=== PATIENT | female | born 1990 | race Caucasian/White ===

== ENCOUNTER 2022-02-20 12:25 | Emergency (ER) | payer BC, SELFPAY ==
[2022-02-20 12:27] VITALS: BP 152/83; PULSE 92; RESP 19; TEMP 36.7; O2SAT 99; BMI 24.5
--- NOTE | 2022-02-20 13:12 | CTR_ITS ---
PROCEDURE INFORMATION: Exam: CT Head Without Contrast Exam date and time: 02/20/2022 1:53 PM Age: 31 years old Clinical indication: Injury or trauma; Fall; Blunt trauma (contusions or hematomas); Without loss of consciousness TECHNIQUE: Imaging protocol: Computed tomography of the head without contrast. Radiation optimization: All CT scans at this facility use at least one of these dose optimization techniques: automated exposure control; mA and/or kV adjustment per patient size (includes targeted exams where dose is matched to clinical indication); or iterative reconstruction. COMPARISON: No relevant prior studies available. RADIATION DOSE METRICS: Total DLP (mGy-cm): 1153.6 FINDINGS: Brain: No hemorrhage. No edema. A few scattered punctate areas of hypoattenuation in both basal ganglia, which may reflect old lacunar infarcts. No mass effect. Cerebral ventricles: No ventriculomegaly. Paranasal sinuses: Visualized sinuses are unremarkable. No fluid levels. Mastoid air cells: Visualized mastoid air cells are well aerated. Bones/joints: Unremarkable. No acute fracture. Soft tissues: Unremarkable. CT/CT head wo con* [id number] IMPRESSION: 1. No acute intracranial abnormality. 2. There are a few scattered punctate areas of hypoattenuation in both basal ganglia which may reflect old lacunar infarcts.
--- NOTE | 2022-02-20 13:12 | CTR_ITS ---
PROCEDURE INFORMATION: Exam: CT Cervical Spine Without Contrast Exam date and time: 02/20/2022 1:53 PM Age: 31 years old Clinical indication: Injury or trauma; Fall; Blunt trauma TECHNIQUE: Imaging protocol: Computed tomography of the cervical spine without contrast. Radiation optimization: All CT scans at this facility use at least one of these dose optimization techniques: automated exposure control; mA and/or kV adjustment per patient size (includes targeted exams where dose is matched to clinical indication); or iterative reconstruction. COMPARISON: No relevant prior studies available. RADIATION DOSE METRICS: Total DLP (mGy-cm): 192.1 FINDINGS: Bones/joints: No acute fracture. Normal alignment. No significant disc protrusion. No severe spinal canal stenosis. Lungs: Lung apices are normal. Soft tissues: Unremarkable. CT/CT cervical spin wo con* [id number] IMPRESSION: No acute findings.
--- NOTE | 2022-02-20 13:15 | W.ED.FALL ---
HPI - Fall General: Chief Complaint: Fall Stated Complaint: head/neck pain Time Seen by Provider: 02/20/22 13:07 Source: patient Mode of arrival: ambulatory Limitations: no limitations History of Present Illness: 31-year-old female has a history of chronic neck pain along with headaches states that she was mopping her floor yesterday and slipped and fell and hit her head on the counter. States she hit her posterior head she been having a posterior headache along with neck pain since then she rates her pain a 6 out of 10 denies any loss conscious denies any worsening improving factors. Associated symptoms-after fall: Reports headache(s) and neck pain; Denies abdominal pain or chest pain Review of Systems Const: Denies: fever(s), chills, body aches or change in appetite Eyes: Denies: blurry vision or eye discomfort ENMT: Denies: throat pain or dental pain Card: Denies: chest pain Resp: Denies: dyspnea GI: Denies: abdominal pain, nausea, vomiting or diarrhea : Denies: dysuria Musc: Reports: neck pain Skin/Breast: Denies: rash Neuro: Reports: headache(s) Psych: Denies: depression Simeon/Lymph: Denies: easy bruising All/Imm: Denies: urticaria PFSH ED PFSH: Medical History No pertinent past medical history Social History (Updated 02/20/22 @ 13:15 by Kilo Braun MD) Substance/Drug Use: never Physical Exam Const: COMMON NORMALS: no acute distress, patient oriented x3 and healthy appearing HENMT: COMMON NORMALS: normocephalic HEAD & SCALP: normocephalic OTHER: Posterior scalp tenderness Eye: COMMON NORMALS: Equal, round and reactive pupils present and EOMs intact bilaterally PUPIL: Yes Equal, round and reactive pupils present Neck/C-Spine: COMMON NORMALS: full ROM and supple OTHER: Tenderness along C-spine Chest: COMMONS NORMALS: normal inspection of the chest and normal palpation of entire chest wall Resp: COMMON NORMALS: normal respiratory effort, No retractions, No use of accessory muscles and clear to auscultation bilaterally AUSCULTATION: clear to auscultation bilaterally Cardio: COMMON NORMALS: regular rate, regular rhythm and No murmurs present (Cardio) RATE: regular rate RHYTHM: regular rhythm GI: COMMON NORMALS: Normal to inspection, nondistended, normoactive bowel sounds present, Soft to palpation, non-tender and no masses PALPATION: Yes Soft to palpation Extremity: COMMON NORMALS: normal to inspection and full ROM Neuro: COMMON NORMALS: patient oriented x3, moves all extremities and no focal motor deficits Psych: COMMON NORMALS: mental status grossly normal, Normal thought process present and cooperative THOUGHT PROCESS: Normal thought process present Skin: COMMON NORMALS: no rashes or lesions noted and no wounds GENERAL SKIN EXAM: no rashes or lesions noted Course Vital Signs: Vital signs: Vital Signs Temperature 98.1 F 02/20/22 12:27 Pulse Rate 92 02/20/22 12:27 Respiratory Rate 19 H 02/20/22 12:27 Blood Pressure 152/83 02/20/22 12:27 Pulse Oximetry 99 02/20/22 12:27 Oxygen Delivery Me thod 02/20/22 12:27 MDM - Fall Medical Decision Making Patient presents here with close head injury along with neck pain from a fall her CT scans here are normal she is well-appearing here her pains improved she stable for discharge she is to follow-up with PCP and return if worsening she understands agrees to plan. Lab Data Radiology Impressions Cervical Spine CT 02/20/22 13:12 IMPRESSION: No acute findings. Head CT 02/20/22 13:12 IMPRESSION: 1. No acute intracranial abnormality. 2. There are a few scattered punctate areas of hypoattenuation in both basal ganglia which may reflect old lacunar infarcts. Discharge Plan Discharge Patient Disposition: Home Clinical Impression: Closed head injury, Neck pain Prescriptions: New methocarbamol 750 mg tablet 750 mg PO Q6H PRN (Reason: spasms) Qty: 20 0RF Naprosyn 500 mg tablet 500 mg PO BID PRN (Reason: pain) Qty: 20 0RF Discharge Orders: Discharge ED (Routine); Ordered 02/20/22 Ordered By: Kilo Braun Referrals: Curz Merino FNP [Primary Care Provider] - 1-3 days Discharge Diet: Advance as tolerated Discharge Activity: Resume usual activity Patient Instructions: Head Injury (ED), Neck Pain (ED) Coding Level of Care Code ED Mobile Marketing Specialist for Chg Fwd Exam Comprehensive
[2022-02-20] MEDS: ondansetron 2 mg/ML SDV 2 mL 4 MG IVP (13:39)
[2022-02-20] MEDS: ketorolac 30 mg/mL INJ IVP (13:40)
[2022-02-20] MEDS: HYDROcodone-acetaminophen 5-325 mg Tablet 1 TAB PO (14:43)
== END 2022-02-20 14:54 | disposition home or self-care (01) ==
PROVIDERS: Emergency Provider Emergency Medicine; PCP Nurse Practitioner Family
DX: S09.8XXA Other specified injuries of head, initial encounter (principal); M54.2 Cervicalgia; W01.198A Fall on same level from slipping, tripping and stumbling with subsequent striking against other object, initial encounter
CPT/HCPCS: 70450; 72125; 96374; 96375; 99285; J1885; J2405

== ENCOUNTER 2022-03-13 21:58 | Emergency (ER) | payer BC, SELFPAY ==
[2022-03-13 22:05] VITALS: BP 121/86; PULSE 88; RESP 16; TEMP 36.4; O2SAT 98
--- NOTE | 2022-03-13 22:30 | W.ED.FEMALGU ---
HPI - Female Genitourinary General: Chief complaint: Urogenital-Female Stated complaint: blood in urine, low back,fever Time Seen by Provider: 03/13/22 22:29 History of Present Illness: 32-year-old female comes in today with complaints of right flank pain radiating into the groin and blood in urine. Patient also reported occasional fever. Patient reports nausea and vomiting. Patient does have gallbladder disease. Patient appears nontoxic. Patient moves all extremities well. Patient has had a tubal ligation. Associated symptoms: Reports abdominal pain and nausea Review of Systems Const: Reports: fever(s) and chills GI: Reports: abdominal pain, nausea and vomiting : Reports: flank pain and hematuria PFS ED PFSH: Medical History No pertinent past medical history Physical Exam Const: COMMON NORMALS: alert HENMT: COMMON NORMALS: normocephalic HEAD & SCALP: normocephalic Neck/C-Spine: COMMON NORMALS: full ROM Resp: COMMON NORMALS: normal respiratory effort and clear to auscultation bilaterally AUSCULTATION: clear to auscultation bilaterally Cardio: COMMON NORMALS: regular rate and regular rhythm RATE: regular rate RHYTHM: regular rhythm GI: COMMON NORMALS: Soft to palpation PALPATION: Yes Soft to palpation and Yes Tenderness to palpation present (GI) Details: RLQ and RUQ : BLADDER/KIDNEY EXAM: Yes CVA tenderness on the right Back/Pelvis: GENERAL BACK: Yes CVA tenderness Extremity: COMMON NORMALS: no pedal edema Neuro: SENSORIUM/ORIENTATION: Yes alert Skin: COMMON NORMALS: turgor normal GENERAL SKIN EXAM: turgor normal Course Vital Signs: Vital signs: Vital Signs Temperature 97.6 F 03/13/22 22:05 Pulse Rate 88 03/13/22 22:05 Respiratory Rate 18 03/13/22 23:02 Blood Pressure 121/86 03/13/22 22:05 Pulse Oximetry 98 03/13/22 22:05 Oxygen Delivery Me thod 03/13/22 22:05 MDM - Female Medical Decision Making Patient comes in today with nausea vomiting, right flank pain radiating to the groin. Hematuria. On exam she has right upper quadrant abdominal pain, CVA tenderness on percussion, soft abdomen. Bowel sounds are present. Vital signs are normal. Differential diagnosis includes but not limited to gallbladder disease, renal calculi, pyelonephritis, UTI, appendicitis. Patient was given 50 mcg of fentanyl, and 15 mg of ketorolac for her abdominal pain. Patient did have some good results for about 1 hour and then was asking for more pain medication. CT of the abdomen and pelvis came back and was negative for any abnormalities except constipation. CBC noted a mild leukocytosis at 11,000, urinalysis was unremarkable, and CMP was unremarkable. Reviewed exam with patient and recommended treatment for constipation. Patient left prior to discharge instructions given due to reported poor control of pain. Lab Data 03/13/22 23:25 03/13/22 23:25 Radiology Impressions Abdomen/Pelvis CT 03/13/22 22:55 IMPRESSION: 1. No acute findings. 2. Stool throughout the colon suggests constipation. No bowel obstruction. Laboratory Results WBC 11.9 10^3/uL (4.0-10.0) H 03/13/22: RBC 4.49 10^6/uL (4.1-5.3) 03/13/22: Hgb 14.1 g/dL (11.5-15.3) 03/13/22: Hct 44.2 % (37.0-47.0) 03/13/22: MCV 98.4 fl (81-99) 03/13/22: MCH 31.4 pg (28.0-34.0) 03/13/22: MCHC 31.9 g/dL (30.0-36.0) 03/13/22: RDW 11.3 % (12.1-15.1) L 03/13/22: Plt Count 276 10^3/cmm (130-400) 03/13/22: MPV 10.3 fL (7.4-10.4) 03/13/22: Neut % (Auto) 50.1 % 03/13/22: Lymph % (Auto) 39.3 % 03/13/22: Page % (Auto) 7.2 % 03/13/22: Eos % (Auto) 2.4 % 03/13/22: Baso % (Auto) 0.7 % 01/28/23 23:25 Neut # (Auto) 5.95 10^3/uL (1.8-7.7) 03/13/22 23:25 Lymph # (Auto) 4.7 10^3/uL (0.8-4.8) 03/13/22 23:25 Page # (Auto) 0.9 10^3/uL (0.2-0.9) 03/13/22 23:25 Eos # (Auto) 0.3 10^3/uL (0.0-0.8) 03/13/22 23:25 Baso # (Auto) 0.1 10^3/uL (0.0-0.1) 03/13/22 23:25 Nucleated RBC % (auto) 0 % 03/13/22 23: Nucleated RBCs # 0.0 /100WBC 03/13/22 23:25 Sodium 138 mmol/L (136-145) 03/13/22 23:25 Potassium 3.6 mmol/L (3.5-5.1) 03/13/22 23:25 Chloride 106 mmol/L (98-107) 03/13/22 23:25 Carbon Dioxide 19 mmol/L (22-29) L 03/13/22 23:25 Anion Gap 16.6 (5-19) 03/13/22 23:25 BUN 23 mg/dL (6-20) H 03/13/22 23:25 Creatinine 0.9 mg/dL (0.5-0.9) 03/13/22 23:25 GFR Calculation 72.1 mL/min (90-130) L 03/13/22 23:25 Glucose 96 mg/dL (65-115) 03/13/22 23:25 Calculated Osmolality 290 mOsm/kg (285-295) 03/13/22 23:25 Calcium 9.8 mg/dL (8.5-10.5) 03/13/22 23:25 Total Bilirubin 0.3 mg/dL (0.15-1.2) 03/13/22 23:25 AST 15 U/L (0-32) 03/13/22 23:25 ALT 10 U/L (0-33) 03/13/22 23:25 Alkaline Phosphatase 58 U/L (35-105) 03/13/22 23:25 Total Protein 7.6 g/dL (6.6-8.7) 03/13/22 23:25 Albumin 4.4 g/dL (3.5-5.2) 03/13/22 23:25 Globulin 3.2 g/dL (1.3-4.6) 03/13/22 23:25 Lipase 34 U/L (13-60) 03/13/22 23:25 Urine Color Yellow (Yellow) 03/13/22 22:34 Urine Appearance Clear (CLEAR) 03/13/22 22:34 Urine pH 5 (5-7) 03/13/22 22:34 Ur Specific [place] 1.030 (1.005-1.030) 03/13/22 22:34 Urine Protein Neg (Negative) 03/13/22 22:34 Urine Glucose (UA) Norm (Normal) 03/13/22 22:34 Urine Ketones 1+ (Negative) H 03/13/22 22:34 Urine Blood 2+ (Negative) H 03/13/22 22:34 Urine Nitrate Negative (Negative) 03/13/22 22:34 Urine Bilirubin Neg (Negative) 03/13/22 22:34 Urine Urobilinogen Norm mg/dL (Negative) 03/13/22 22:34 Ur Leukocyte Esterase 1+ (Negative) H 03/13/22 22:34 Urine RBC 0-4 /hpf (0-2) H 03/13/22 22:34 Urine WBC 5-10 /hpf (0-5) H 03/13/22 22:34 Ur Squamous Epith Cells 5-10 /hpf (0-5) H 03/13/22 22:34 Amorphous Sediment Not Reportable 03/13/22 22:34 Urine Bacteria Trace /hpf (NONE) 03/13/22 22:34 Urine Mucus 4+ /hpf 03/13/22 22:34 Urine HCG, Qual Negative (Negative) 03/13/22 22:34 Discharge Plan Discharge Patient Disposition: Home Clinical Impression: Abdominal pain Qualifiers: Abdominal location: right upper quadrant Qualified Code(s): R10.11 - Right upper quadrant pain Constipation Qualifiers: Constipation type: unspecified constipation type Qualified Code(s): K59.00 - Constipation, unspecified Condition: Stable Prescriptions: No Action methocarbamol 750 mg tablet 750 mg PO Q6H PRN (Reason: spasms) Qty: 20 0RF Naprosyn 500 mg tablet 500 mg PO BID PRN (Reason: pain) Qty: 20 0RF Discharge Orders: Discharge ED (Routine); Ordered 03/14/22 Ordered By: Anselmo Godwin Referrals: Cruz Merino FNP [Primary Care Provider] - Discharge Diet: Usual diet Discharge Activity: Increase activity as tolerated Patient Instructions: Constipation (ED), Abdominal Pain (ED) Activity Restrictions/Additional Instructions: Follow-up with primary care. Drink plenty of water and fluids. Use MiraLAX 17 g 2 times a day until good bowel movement. Return to ER for worsening symptoms such as fever greater than 100.4, blood in vomit or stool, or new concerns. Coding Level of Care Code ED Plug Saw Operator for Chg Fwd Exam Comprehensive
--- NOTE | 2022-03-13 22:55 | CTR_ITS ---
PROCEDURE INFORMATION: Exam: CT Abdomen And Pelvis Without Contrast Exam date and time: 03/13/2022 11:48 PM Age: 32 years old Clinical indication: Other: Hematuria; Abdominal pain; Flank; Right; Prior surgery; Surgery date: 6+ months; Surgery type: Ectopic x2. Both fallopian tubes removed; Additional info: Left flank pain, blood in urine TECHNIQUE: Imaging protocol: Computed tomography of the abdomen and pelvis without contrast. Radiation optimization: All CT scans at this facility use at least one of these dose optimization techniques: automated exposure control; mA and/or kV adjustment per patient size (includes targeted exams where dose is matched to clinical indication); or iterative reconstruction. Other protocol: This patient has received 2 known CTs and 0 known cardiac nuclear medicine studies in the 12 months prior to the current study. COMPARISON: CT abdomen pelvis w con* [id number] 12/30/2015 3:13 AM RADIATION DOSE METRICS: Total DLP (mGy-cm): 515.89 FINDINGS: Liver: Normal. No mass. Gallbladder and bile ducts: Normal. No calcified stones. No ductal dilation. Pancreas: Normal. No ductal dilation. Spleen: Normal. No splenomegaly. Adrenal glands: Normal. No mass. Kidneys and ureters: Normal. No hydronephrosis. Stomach and bowel: Stool throughout the colon suggests constipation. No bowel obstruction. Appendix: No evidence of appendicitis. Intraperitoneal space: Unremarkable. No free air. No significant fluid collection. Vasculature: Unremarkable. No abdominal aortic aneurysm. Lymph nodes: Unremarkable. No enlarged lymph nodes. Urinary bladder: Unremarkable as visualized. Reproductive: Unremarkable as visualized. Bones/joints: Unremarkable. No acute fracture. Soft tissues: Unremarkable. CT/CT kidney stone [id number] IMPRESSION: 1. No acute findings. 2. Stool throughout the colon suggests constipation. No bowel obstruction.
[2022-03-13 23:02] VITALS: RESP 18
[2022-03-13 23:02] LABS: Add Urine Culture? No; Add Urine Microscopic? YES; Bacteria Urine TRACE /hpf; Bilirubin Urine Neg (Negative); Blood Urine 2+ (Negative); Glucose Urine UA Norm (Normal); Ketones Urine 1+ (Negative); Leukocyte Esterase Urine 1+ (Negative); Mucus Urine 4+ /hpf; Nitrate Urine Negative (Negative); Protein Urine Neg (Negative); RBC Urine 0-4 /hpf (0-2); Urine Appearance Clear (CLEAR); Urine Color Yellow (Yellow); Urobilinogen Urine Norm (Negative); pH Urine 5 (5-7)
[2022-03-13] MEDS: fentaNYL 50 mcg/mL INJ 2mL IVP (23:02)
[2022-03-13] MEDS: ondansetron 2 mg/ML SDV 2 mL 4 MG IVP (23:03)
[2022-03-13] MEDS: ketorolac 30 mg/mL INJ 15 MG IVP (23:03)
[2022-03-13] MEDS: sodium chloride 0.9% 500 ML 999 ML IV (23:03)
[2022-03-13 23:32] LABS: Basophils # 0.1 10^3/uL (0.0-0.1); Basophils % 0.7 %; Eosinophils # 0.3 10^3/uL (0.0-0.8); Eosinophils % 2.4 %; Hematocrit 44.2 % (37.0-47.0); Hemoglobin 14.1 g/dL (11.5-15.3); Lymphocytes # 4.7 10^3/uL (0.8-4.8); Lymphocytes % 39.3 %; Mean Corpuscular HGB Conc 31.9 g/dL (30.0-36.0); Mean Corpuscular Hemoglobin 31.4 pg (28.0-34.0); Mean Corpuscular Volume 98.4 fl (81-99); Mean Platelet Volume 10.3 fL (7.4-10.4); Monocytes # 0.9 10^3/uL (0.2-0.9); Monocytes % 7.2 %; Neutrophils # 5.95 10^3/uL (1.8-7.7); Neutrophils % 50.1 %; Nucleated Red Blood Cells % 0 %; Platelet Count 276 10^3/cmm (130-400); Red Blood Count 4.49 10^6/uL (4.1-5.3); Red Cell Distribution Width 11.3 % (12.1-15.1); White Blood Count 11.9 10^3/uL (4.0-10.0)
[2022-03-14 00:37] LABS: Alanine Aminotransferase 10 U/L (0-33); Albumin Level 4.4 g/dL (3.5-5.2); Alkaline Phosphatase 58 U/L (35-105); Aspartate Amino Transferase 15 U/L (0-32); Blood Urea Nitrogen 23 mg/dL (6-20); Calcium 9.8 mg/dL (8.5-10.5); Carbon Dioxide 19 mmol/L (22-29); Chloride 106 mmol/L (98-107); Globulin 3.2 g/dL (1.3-4.6); Glomerular Filtration Rate 72.1 mL/min (90-130); Glucose 96 mg/dL (65-115); Lipase 34 U/L (13-60); Osmolality Calculated 290 mOsm/kg (285-295); Sodium 138 mmol/L (136-145); Total Bilirubin 0.3 mg/dL (0.15-1.2); Total Protein 7.6 g/dL (6.6-8.7)
[2022-03-14 00:39] LABS: Anion Gap 16.6 (5-19); Potassium 3.6 mmol/L (3.5-5.1)
--- NOTE | 2022-03-14 00:39 | PC.NURSE ---
pt found standing in hallway by exit door screaming and cursing at staff. states all people have done is lie to her and nobody wants to take care of people who actually need it. pt was apparently agitated that she was not being given more pain medicine. She said she was leaving. 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 Her family member stated that he placed the catheter in the sharps container. I told the pt that she had the right to leave if she chose to, and I opened the door for her and she walked out screaming at staff.
== END 2022-03-14 00:46 | disposition home or self-care (01) ==
PROVIDERS: Emergency Provider Nurse Practitioner Family; PCP Nurse Practitioner Family
DX: R10.11 Right upper quadrant pain (principal); K59.00 Constipation, unspecified
CPT/HCPCS: 36415; 74176; 80053; 81001; 81025; 83690; 85025; 96361; 96374; 96375; 99285; J1885; J2405; J3010; J7040